=== PATIENT | female | born 1995 | race Caucasian/White ===

== ENCOUNTER 2018-10-16 13:39 | Emergency (ER) | payer MEDICAID ==
[2018-10-16] MEDS ORDERED: NS 1,000 ML IV ONE (13:57)
--- NOTE | 2018-10-16 14:01 | EDPHY ---
H & P Stated Complaint: left side low back pain 2 days Source: Patient Exam Limitations: No limitations - Personal History LMP (Females 10-55): Now - Medical/Surgical History Hx Asthma: No Hx Chronic Respiratory Disease: No Hx Diabetes: No Hx Cardiac Disease: No Hx Renal Disease: No Hx Cirrhosis: No Hx Alcoholism: No Hx HIV/AIDS: No Other PMH: 3 hernia surgeries. last one 2 years ago - Family History Significant Family History: No pertinent family hx - Social History Smoking Status: Never smoked Alcohol Use: None Time Seen by Provider: 10/16/18 13:51 HPI/ROS: CHIEF COMPLAINT: Left flank pain HISTORY OF PRESENT ILLNESS: Patient is a 23-year-old female who comes to the emergency department complaining of left flank pain that radiates to her groin. It began yesterday. It tends to fluctuate. She has had nausea but no vomiting. She has not noticed any hematuria or dysuria or frequency. She states that she is finishing her menstrual cycle Currently and is not . No diarrhea. She does have a family history of kidney stones as well as ovarian cysts. Severity: Moderate Modifying factors: None REVIEW OF SYSTEMS: Constitutional: denies: chills, fever, recent illness, recent injury EENTM: denies: blurred vision, double vision, nose congestion Respiratory: denies: cough, shortness of breath Cardiac: denies: chest pain, irregular heart rate, lightheadedness, palpitations Gastrointestinal/Abdominal: See HPI denies: diarrhea, vomiting, blood streaked stools Genitourinary: See HPI denies: dysuria, frequency, hematuria Musculoskeletal: See HPI denies: joint pain, muscle pain Skin: denies: lesions, rash, jaundice, bruising Neurological: denies: headache, numbness, paresthesia, tingling, dizziness, weakness Hematologic/Lymphatic: denies: blood clots, easy bleeding, easy bruising Immunologic/allergic: denies: HIV/AIDS, transplant 10 systems reviewed and negative except as noted EXAM: GENERAL: Well-appearing, well-nourished and in no acute distress. HEAD: Atraumatic, normocephalic. EYES: Pupils equal round and reactive to light, extraocular movements intact, sclera anicteric, conjunctiva are normal. ENT: TMs normal, nares patent, oropharynx clear without exudates. Moist mucous membranes. NECK: Normal range of motion, supple without lymphadenopathy or JVD. LUNGS: Breath sounds clear to auscultation bilaterally and equal. No wheezes rales or rhonchi. HEART: Regular rate and rhythm without murmurs, rubs or gallops. ABDOMEN: Soft, nontender, normoactive bowel sounds. No guarding, no rebound. No masses appreciated. BACK: No CVA tenderness, no spinal tenderness, step-offs or deformities EXTREMITIES: Normal range of motion, no pitting or edema. No clubbing or cyanosis. NEUROLOGICAL: Cranial nerves II through XII grossly intact. Normal speech, normal gait. 5/5 strength, normal movement in all extremities, normal sensation , normal reflexes PSYCH: Normal mood, normal affect. SKIN: Warm, dry, normal turgor, no visible rashes or lesions. (Norris Ervin) Constitutional: Initial Vital Signs Temperature (C) 36.8 C 10/16/18 13:51 Heart Rate 81 10/16/18 13:51 Respiratory Rate 17 10/16/18 13:51 Blood Pressure 144/94 H 10/16/18 13:51 O2 Sat (%) 95 10/16/18 13:51 O2 Delivery Mode Room Air Allergies/Adverse Reactions: No Known Allergies Allergy (Unverified 10/16/18 13:54) Home Medications: Medication Instructions Recorded Bcp 10/16/18 Escitalopram Oxalate 10/16/18 Medical Decision Making - Diagnostics Imaging: Discussed imaging studies w/ call center dispatcher Radiologist ED Course/Re-evaluation: I took over care of this patient at 3:00 p.m.. Pelvic ultrasound and blood work are unremarkable except for a collapsing corpus luteum cyst on the left side. We are awaiting urinalysis and test. CT scan will then be obtained to evaluate for a kidney stone. Past medical history is significant for 3 diaphragmatic hernia surgeries. 1st 1 was when she was 2-day-old. She had a cortex like mesh put in at that time. She had a revision surgery done at 6 years of age and then another surgery done at 20 years of age. She denies any further mesh or other surgical hardware placed during the 2nd 2 surgeries. 3:15 p.m., urine dip indicates negative and 3+ blood. The patient is currently finishing her menstruation. Her presentation is concerning for possible ureterolithiasis. CT abdomen and pelvis without contrast to be obtained. CT abdomen and pelvis without contrast: It appears she likely has calcified mesh noted in the left flank area from her previous diaphragmatic hernia repairs. The appendix is well visualized and is normal. She has a right-sided L4-5 disc protrusion. No evidence of a kidney stone. The kidney and spleen are opposite the usual anatomic position. No acute pathology. Results were discussed with staff radiologist Dr. Efren Ramirez. 4:40 p.m., the patient was re-evaluated. Her vital signs were reviewed and are normal. She is sitting upright on the gurney. She is texting on her phone. She appears comfortable. Repeat abdominal exam she is soft, nontender nondistended. I discussed the results of her CT scan as noted above in detail with her. I reviewed her urinalysis and blood tests. She feels comfortable going home at this time and I feel she is safe for discharge. She will follow up with her primary care physician, Dr. Morales, with [facility] [place] the [place] early next week for re-evaluation. I will put her on high-dose ibuprofen for the next 3 days. She has no contraindications to this medication. Return to emergency department precautions were thoroughly reviewed with her. All of her questions were answered. She was discharged from the emergency department in good condition. (Barbara Patel) 3:00 p.m. patient continues to decline pain medication. She is currently feeling a bit better it better. She has not yet been able to urinate. Ultrasound and blood work is unremarkable. Awaiting urinalysis and test. Will likely CT scan. Care transferred to Dr. Patel. (Norris Ervin) Differential Diagnosis: Partial list of the Differential diagnosis considered include but were not limited to; urinary tract infection, kidney stone, ovarian cyst and although unlikely based on the history and physical exam, I also considered diverticulitis, , abscess, PID, appendicitis. (Norris Ervin) - Data Points Medications Given: Discontinued Medications Sodium Chloride (Ns) 1,000 mls @ 0 mls/hr IV EDNOW ONE; Wide Open PRN Reason: Protocol Stop: 10/16/18 13:58 Last Admin: 10/16/18 14:15 Dose: 1,000 mls Point of Care Test Results: CBC CBC Collection Date 04/18/19 CBC Collection Time 14:15 WBC 9.24 RBC 5.25 HGB 16.3 HCT 47.4 PLT 207 Neut # 6.13 Neut 66.3 LYMPH # 2.57 LYMPH 27.8 MCV 90.3 Chemistry 10/16/18 13:24 POC Sodium 144 mEq/L mEq/L (135-145) POC Potassium 4.2 mEq/L mEq/L (3.3-5.0) POC Chloride 107.0 mEq/L mEq/L (97-110) POC Total CO2 31 mEq/L mEq/L (22-31) POC BUN 12 mg/dL mg/dL (7-23) POC Creatinine 0.8 mg/dL mg/dL (0.6-1.0) POC Glucose 123 mg/dL H mg/dL (70-100) POC Calcium 9.8 mg/dL mg/dL (8.5-10.4) POC Total Bilirubin 0.6 mg/dL mg/dL (0.1-1.4) POC AST 28 IU/L IU/L (14-46) POC ALT 21 IU/L IU/L (9-52) POC Alk Phosphatase 54 IU/L IU/L (38-126) POC Total Protein 7.5 g/dL g/dL (6.3-8.2) POC Albumin 3.9 g/dL g/dL (3.5-5.0) Urine Collection Date 10/16/18 Collection Time 15:10 HCG Results Negative Urine Dip Collection Date 10/16/18 Collection Time 15:10 Specific [place] (1.002-1.030) 1.020 PH (5.0-7.5) 7.0 Leukocytes (Negative) Negative Nitrites (Negative) Negative Protein (Negative) 1+ Glucose (Negative) Negative Ketones (Negative) Negative Urobilnogen (0.2-1.0 EU) 0.2 Bilirubin (Negative) Negative Blood (Negative) 3+ Departure - Departure Disposition: Home, Routine, Self-Care Clinical Impression: Ovarian cyst, left, Left flank pain Condition: Good Instructions: Ovarian Cyst (ED), Flank Pain (ED) Additional Instructions: Read and follow provided instructions. Follow-up with your primary care physician within the next 2-4 days for re- evaluation as discussed. Ibuprofen dosin mg every 6 hours with meals for the next 3 days only. Take only as needed for pain. Return to the emergency department for worsening symptoms, worsening pain, fever , vomiting or other serious concerns. Referrals: Rina Morales DO [Primary Care Provider] - As per Instructions
[2018-10-16 16:10] VITALS: BP 121/74
== END 2018-10-16 16:57 | disposition home or self-care (01) ==
LOC: CED 13:39
DX: N83.292 Other ovarian cyst, left side (principal); R11.0 Nausea; E86.9 Volume depletion, unspecified
CPT/HCPCS: 74176-PO; 76856-PO; 80053-ER; 81025-ER; 85025-QW-ER; 96360-ER; 99285-ER